=== PATIENT | female | born 1955 | race Caucasian/White ===

== ENCOUNTER 2020-06-01 17:47 | Emergency (ER) | payer MEDICARE, OTHER ==
[~2020-06-01] VITALS: Ht 157.5 cm; Wt 65.9 kg
[2020-06-01 18:06] VITALS: Ht 157.5 cm; Wt 65.9 kg
[2020-06-01 20:11] VITALS: BP 124/44
== END 2020-06-01 20:12 | disposition home or self-care (01) ==
LOC: D.ER 17:47
DX: S16.1XXA Strain of muscle, fascia and tendon at neck level, initial encounter (principal); R51 Headache; S62.307A Unspecified fracture of fifth metacarpal bone, left hand, initial encounter for closed fracture; S09.90XA Unspecified injury of head, initial encounter; W01.0XXA Fall on same level from slipping, tripping and stumbling without subsequent striking against object, initial encounter; Y93.9 Activity, unspecified; Y92.9 Unspecified place or not applicable